=== PATIENT | female | born 1975 | race Caucasian/White ===

== ENCOUNTER → 2018-02-07 | Outpatient (CLI) | payer OTHER ==
[~2018-02-07] MED LIST: GADOBENATE DIMEGLUMINE 1 ML IV ONE
--- NOTE | 2018-02-07 21:16 | Diagnostic Imaging Report ---
EXAMINATION: MRI of the cervical spine HISTORY: Multiple sclerosis COMPARISON: Cervical spine MRI in 1915 TECHNIQUE: Pre-contrast sagittal T1, T2, STIR; axial T1, T2.. Post contrast axial and sagittal T1. Intravenous Contrast: 10 mL of MultiHance. FINDINGS: Spinal Cord: Spinal cord size: Normal T1 lesions: None Enhancing lesions: None T2 lesions: Some of the lesions are slightly more conspicuous, likely technique related, accounting for the differences in technique there has not been significant interval change in previously seen multiple scattered T2 lesions as follows: Base of the dens level: Ventral cord and questionable bilateral posterolateral. Mid C3 to C6: Paired bilateral lateral spinal cord confluent lesions. Largest confluent lesion in the left posterolateral cord at the level of C4. C5-C6: Small left posterolateral and a smaller right posterolateral cord lesions. C6-C7: Small right posterolateral cord. T1: Possible left posterolateral cord. Others: Vertebrae: Normal alignment, height, signal intensity. Discs: Normal Craniocervical junction: Normal. IMPRESSION: 1. No significant interval change in previously seen multiple cervical spinal cord demyelinating T2 lesions. No discrete new MS lesions. 2. No cervical spinal cord atrophy. Signed by: Dr. Marilee Avelar M.D. on 02/07/2018 9:12 PM
--- NOTE | 2018-02-07 21:25 | Diagnostic Imaging Report ---
EXAMINATION: MRI of the brain without and with contrast . HISTORY:Multiple sclerosis. COMPARISON: Brain MRI from 10/31/15 TECHNIQUE: Axial precontrast T1. Postcontrast sagittal high resolution thin cuts T2-FLAIR CUBE with axial and coronal reconstructions, axial DWI, T2, and high resolution thin cuts sagittal T1 CUBE with axial and coronal reconstructions. Intravenous contrast: 10 mL of MultiHance FINDINGS: T2 lesions: Unchanged 40 to 50 T2 lesions located in the periventricular, deep, and juxtacortical cerebral white matter, callososeptal interface and corpus callosum as well. Approximately 3 new T2 lesions. No definite brainstem or cerebellar lesions. T1 lesions: None. About 10 slightly T1 hypointense lesions are unchanged. Enhancing lesions: None, previously enhancing lesions are no longer enhancing. Corpus callosum volume: Normal. Brain volume: Normal for age. Other: No mass, hydrocephalus, hemorrhage, acute or chronic infarcts. IMPRESSION: 1. Approximately 3 new demyelinating T2 lesions, otherwise unchanged supratentorial MS lesions. No new enhancing plaques. 2. No disproportionate brain or callosal atrophy. Signed by: Dr. Marilee Avelar M.D. on 02/07/2018 9:22 PM
== END ==
LOC: MRI 14:23
PROVIDERS: ATTEND Psychiatry & Neurology Clinical Neurophysiology
DX: G35 Multiple sclerosis (principal)
CPT/HCPCS: 70553; 72156; 81025

== ENCOUNTER → 2018-08-25 | Outpatient (CLI) | payer OTHER ==
--- NOTE | 2018-08-28 10:12 | Diagnostic Imaging Report ---
Examination: MRI of the Thoracic Spine without and with Contrast History: Multiple sclerosis. Comparison studies: MRI of the thoracic spine performed October 31, 2015. TECHNIQUE: Sagittal T1 postcontrast; sagittal T2 and STIR. Axial T1 postcontrast, T2. Intravenous contrast: 9mL of MultiHance. Findings: FINDINGS: Spinal cord size: Normal. Enhancing lesions: None. T2 lesions: Small lesion in the right posterior cord at T6, unchanged. Right anterior cord at T10, new from prior. Left lateral cord at T11-T12, unchanged. T1 lesions: None. Vertebrae: Normal alignment, height, and signal intensity. Discs: No abnormalities IMPRESSION: 1. Single new nonenhancing lesion when compared to prior thoracic spine MRI performed October 31, 2015. 2. No enhancing lesion. 3. Unchanged remaining nonenhancing lesions Signed by: Dr. Tammy Peter M.D. on 08/28/2018 10:09 AM
--- NOTE | 2018-08-28 10:23 | Diagnostic Imaging Report ---
Examination: MRI SPINE CERVICAL WITHOUT AND WITH CONTRAST HISTORY: Multiple sclerosis. COMPARISON: Cervical spine MRI performed February 07, 2018. TECHNIQUE: Sagittal and axial T1 postcontrast; sagittal T2 and STIR. Axial T2. Intravenous contrast: 9 mL MultiHance. FINDINGS: Spinal cord size: Normal, unchanged. Enhancing lesions: None. T2 lesions: Right and left cord at the dens and mid C2, unchanged. Left posterior cord lesion at C6, unchanged. Right and left lateral cords from C3 through C7, unchanged. Right posterior cord at C6-C7, unchanged. Right lateral cord at T1, unchanged. No new lesion. T1 lesions: There are no lesions of cerebrospinal fluid equivalent intensity. Vertebrae: Normal alignment, height, and signal intensity. Discs: Disc bulges at C3-C4, C5-C6 and C6-C7 without canal stenosis Foramen magnum: No Chiari malformation, mass, or basilar invagination. Additional findings:None. IMPRESSION: 1. No new or enhancing lesion when compared to prior cervical spine MRI performed February 07, 2018. 2. Unchanged remaining nonenhancing lesions. Signed by: Dr. Tammy Peter M.D. on 08/28/2018 10:20 AM
--- NOTE | 2018-08-28 11:13 | Diagnostic Imaging Report ---
Examination: MRI BRAIN WITHOUT AND WITH CONTRAST HISTORY:Multiple sclerosis. COMPARISON:Brain MRI performed February 07, 2018. TECHNIQUE: Axial precontrast T1, postcontrast T2, FLAIR; axial, sagittal and coronal postcontrast T1. Patient was to return for sagittal FLAIR images, but has not. Contrast: 9 mL MultiHance. FINDINGS: T2 lesions: Number: Unchanged between 40 and 50 discrete T2 lesions. No new lesions. Location: Periventricular, deep, callosal septal interface, juxtacortical white matter. No brainstem or cerebellar lesion. T1 "black holes": There are no lesions of cerebrospinal fluid equivalent intensity. Unchanged few mildly hypointense lesions in the periventricular white matter. Enhancing lesions: None, unchanged. Corpus callosum volume: Normal, unchanged. Brain volume: Normal, unchanged. Additional finding: No additional intracranial abnormality. IMPRESSION: 1. No new or enhancing lesion when compared to prior brain MRI performed February 07, 2018. 2. Unchanged nonenhancing lesions. Signed by: Dr. Tammy Peter M.D. on 09/11/2018 8:46 AM
== END ==
LOC: MRI 15:05
PROVIDERS: ATTEND Psychiatry & Neurology Clinical Neurophysiology
DX: G35 Multiple sclerosis (principal); G43.709 Chronic migraine without aura, not intractable, without status migrainosus; N31.9 Neuromuscular dysfunction of bladder, unspecified; G47.10 Hypersomnia, unspecified; Z79.899 Other long term (current) drug therapy
CPT/HCPCS: 70553; 72156; 72157